=== PATIENT | female | born 1950 | race Asian ===

== ENCOUNTER 2021-03-01 14:28 | Outpatient (CLI) | payer OTHER | END 2021-03-01 21:57 | disposition home or self-care (01) | LOC: RAD 14:28 | PROVIDERS: ATTEND Nurse Practitioner Family | DX: M54.12 Radiculopathy, cervical region (principal) ==

== ENCOUNTER 2021-04-26 10:34 | Outpatient (CLI) | payer OTHER | END 2021-04-26 19:07 | disposition home or self-care (01) | LOC: US 10:34 | PROVIDERS: ATTEND Nurse Practitioner Family | DX: R13.19 Other dysphagia (principal) ==

== ENCOUNTER 2021-09-21 22:52 | Emergency (ER) | payer OTHER ==
[~2021-09-21] VITALS: Ht 162.6 cm; Wt 92.5 kg
[2021-09-21 22:58] VITALS: TEMP 98.4
[2021-09-21 23:34] VITALS: BP 178/94
== END 2021-09-21 23:34 | disposition home or self-care (01) ==
LOC: ED 22:52
DX: M79.18 Myalgia, other site (principal); M54.89 Other dorsalgia; G89.29 Other chronic pain
CPT/HCPCS: 93005; 96372; 99283; J1885; J2360